=== PATIENT | male | born 1960 | race African-American/Black ===

== ENCOUNTER 2023-01-26 09:53 | Emergency (ER) | payer OTHER ==
[2023-01-26 10:12] VITALS: BMI 29.9
[2023-01-26] MEDS ORDERED: IBUPROFEN 400 MG TABLET (FP) PO ONE ×2 (10:39→10:41)
[2023-01-26 11:24] VITALS: BP 159/88; PULSE 74; RESP 19; TEMP 97.4
== END 2023-01-26 11:00 | disposition left against medical advice (07) ==
LOC: JER 09:53
DX: R55 Syncope and collapse (principal)
CPT/HCPCS: 82962; 99283-25